=== PATIENT | male | born 1995 | race Caucasian/White ===

== ENCOUNTER 2020-12-31 06:48 | Day surgery (SDC) | payer OTHER ==
[~2020-12-31] VITALS: Ht 193 cm; Wt 78.2 kg
[2020-12-31] VITALS (10 sets, daily range): BP systolic 97–138; BP diastolic 50–77
--- NOTE | 2020-12-31 07:20 | NUR ---
PATIENT AMBULATORY TO ROOM 277. PATIENT IS ALERT AND ORIENTED X3. VS OBTAINED. DR KU NOTIFIED. NEW ORDERS RECEIVED. CONSENT OBTAINED. ADMISSION ASSESSMENT COMPLETED AT THIS TIME. IV ESTABLISHED. LABS OBTAINED AND SENT TO LAB. ORIENTED TIMMY TO ROOM AND CALL LIGHT SYSTEM. CALL LIGHT IN REACH. WILL CONTINUE TO MONITOR.
[2020-12-31 08:33] LABS: HEMATOCRIT 43.1 % (39.0-50.0); HEMOGLOBIN 14.4 g/dl (14.0-18.0); IMMATURE GRANULOCYTES 0.1 % (0.0-5.0); MEAN CELL VOLUME 94.1 fL CALC (80.0-100.0); MEAN CORPUSCULAR HGB 31.4 pG CALC (26.0-32.0); MEAN CORPUSCULAR HGB CONC 33.4 g/dL CAL (32.0-36.0); NEUT# 2.66 thou/uL (1.82-7.42); RED BLOOD COUNT 4.58 mill/uL (4.70-6.10); RED CELL DISTRI WIDTH 11.9 % (11.5-15.5)
[2020-12-31 08:49] LABS: ALBUMIN 4.5 g/dL (3.2-5.0); ALKALINE PHOSPHATASE 74 u/l (38-126); ANION GAP 15 (6-22 (CALC)); BILIRUBIN, TOTAL 0.7 mg/dL (0.0-1.4); BUN 13 mg/dL (9-20); BUN/CREATININE RATIO 17 (12-20 (CALC)); CARBON DIOXIDE 26 mmol/l (22-30); CHLORIDE 104 mmol/l (95-108); CREATININE 0.8 mg/dL (0.7-1.3); GFR > 60 ML/MIN (>=60 (CALC)); GFR FOR AFR.AMER. > 60 ML/MIN (>=60 (CALC)); POTASSIUM 4.1 mmol/l (3.5-5.1); SGOT/AST 27 u/l (17-59); SODIUM 141 mmol/l (137-146); TOTAL PROTEIN 7.4 g/dL (6.3-8.2)
--- NOTE | 2020-12-31 09:10 | NUR ---
REPEAT VS AND CURRENT LAB RESULTS CALLED TO DR. KU AT THIS TIME. ORDERS RECEIVED FOR POTASSIUM 40MEQ PO X1 DOSE NOW. WILL MEDICATE AND CONTINUE TO MONITOR.
--- NOTE | 2020-12-31 10:07 | NUR ---
PT LEFT IN STABLE CONDITION VIA BED FOR ANR PROCEDURE WITH ANR NURSE.
[2020-12-31] MEDS ORDERED: KLONOPIN0.5 M1 PO (15:47)
[2020-12-31] MEDS ORDERED: CLONIDINE0.1 MG PO (15:47)
--- NOTE | 2020-12-31 16:15 | NUR ---
PT ARRIVE BACK TO [facility] RM 277 IN STABLE CONDITION ACCOMPAINED BY ANR NURSE.
--- NOTE | 2020-12-31 16:55 | NUR ---
PT AGGITATED THRASHING AROUND IN BED. PT STATES HE FEELS LIKE HE IS DRUNK, REASSURED PT HE IS ONLY RECOVERING FROM THE PROCEDURE. PT CONTINUES TO THRASH AROUND IN BED. CALL LIGHT WITHIN REACH. VSS. WILL CONTINUE TO MONITOR AT BEDSIDE.
--- NOTE | 2020-12-31 18:05 | NUR ---
PT VOIDED 350ML IN URINAL WITH ASSISTANCE AT THIS TIME.
--- NOTE | 2020-12-31 19:00 | NUR ---
BEDSIDE SBAR RECEIVED FROM KARAN GEORGE. PATIENT RESTLESS, FLAILING OVER THE BED. NO DISTRESS NOTED. BED IN LOW POSITION, LOCKED. BED ALARM ACTIVATED. CALL LIGHT WITHIN REACH.
--- NOTE | 2020-12-31 20:19 | NUR ---
ASSESSMENT COMPLETE. PATIENT REMAINS RESTLESS, TOO SOON FOR PRN ATIVAN. NO DISTRESS NOTED. BED ALARM ACTIVATED.
--- NOTE | 2020-12-31 22:15 | NUR ---
PATIENT RESTING QUIETLY IN BED. NO DISTRESS NOTED AT THIS TIME.
--- NOTE | 2021-01-01 00:46 | NUR ---
LYING QUIELTY IN BED, A LITTLE RESTLESS. DENIES PAIN. NO DISTRESS NOTED. BED ALARM ACTIVATED. CALL LIGHT WITHIN REACH.
[2021-01-01 04:03] VITALS: BP 108/40
--- NOTE | 2021-01-01 04:25 | NUR ---
PATIENT RESTING QUIETLY IN BED EYES CLOSED. EASILY AROUSED. EARLY AM MEDS GIVEN, CLONIDINE HELD AT THIS TIME BP 108/40 WITH HR 63. PATIENT STABLE. DENIES PAIN AT THIS TIME. NO DISTRESS NOTED. CALL LIGHT WITHIN REACH. BED LOCKED, IN LOW POSITION. BED ALARM ACTIVATED.
[2021-01-01 05:27] LABS: ALBUMIN 4.3 g/dL (3.2-5.0); ALKALINE PHOSPHATASE 66 u/l (38-126); ANION GAP 13 (6-22 (CALC)); BILIRUBIN, TOTAL 0.8 mg/dL (0.0-1.4); BUN 13 mg/dL (9-20); BUN/CREATININE RATIO 16 (12-20 (CALC)); CARBON DIOXIDE 28 mmol/l (22-30); CHLORIDE 108 mmol/l (95-108); CREATININE 0.8 mg/dL (0.7-1.3); GFR > 60 ML/MIN (>=60 (CALC)); GFR FOR AFR.AMER. > 60 ML/MIN (>=60 (CALC)); MAGNESIUM 2.1 mg/dL (1.6-2.3); POTASSIUM 3.9 mmol/l (3.5-5.1); SGOT/AST 26 u/l (17-59); SODIUM 145 mmol/l (137-146); TOTAL PROTEIN 7.1 g/dL (6.3-8.2)
[2021-01-01 07:55] VITALS: BP 127/62
[2021-01-01 08:08] VITALS: BP 127/62
--- NOTE | 2021-01-01 08:18 | NUR ---
PT SEEN AT REST IN THE BED, DROWSY BUT INTERACTIVE. LUNGS CLEAR, RA. MEDS PROVIDED, PT ABLE TO SWALLOW WITHOUT DIFFICULTY. KLONOPIN HELD PER DR KU'S VERBAL ORDER. NO DISTRESS NOTED.
--- NOTE | 2021-01-01 12:01 | NUR ---
PT'S FAMILY WAS DOWNSTAIRS WAITING AT 1100, HAVING BEEN TOLD BY KEN THAT HE WOULD BE ABLE TO GO HOME AT THAT TIME. PT WAS AMBULATED IN THE HALLWAY, SEEN ABLE TO BEAR HIS WEIGHT BUT SOMEWHAT UNSTEADY. DISCHARGE INSTRUCTIONS WERE PROVIDED, PT TAKEN TO VEHICLE, ASSISTED INSIDE. PT LEAVES [facility] IN STABLE CONDITION. FATHER STATED THAT HE HAD ALREADY PICKED UP THE MEDICINES FROM [facility] YESTERDAY.
== END 2021-01-01 11:44 | disposition home or self-care (01) | DRG 897 ==
LOC: ANR 06:48 → MS2 06:51 → ANR 09:37
PROVIDERS: ATTEND Anesthesiology
DX: F11.20 Opioid dependence, uncomplicated (principal); F14.90 Cocaine use, unspecified, uncomplicated
CPT/HCPCS: J2060; J2354